=== PATIENT | female | born 1975 | race African-American/Black ===

== ENCOUNTER 2017-05-22 21:32 | Emergency (ER) | payer OTHER ==
[~2017-05-22] VITALS: Ht 165.1 cm; Wt 66.0 kg
[2017-05-22 21:40] VITALS: BP 121/72
== END 2017-05-23 01:30 | disposition left against medical advice (07) ==
LOC: ER 21:45
DX: R10.9 Unspecified abdominal pain (principal); Z53.21 Procedure and treatment not carried out due to patient leaving prior to being seen by health care provider

== ENCOUNTER 2019-03-16 17:52 | Emergency (ER) | payer OTHER ==
[~2019-03-16] VITALS: Ht 165.1 cm; Wt 78.0 kg
[2019-03-16 19:32] VITALS: BP 140/86
== END 2019-03-16 20:36 | disposition home or self-care (01) ==
LOC: ER 17:52
DX: T40.0X1A Poisoning by opium, accidental (unintentional), initial encounter (principal); F41.9 Anxiety disorder, unspecified; Z87.440 Personal history of urinary (tract) infections; Y92.89 Other specified places as the place of occurrence of the external cause
CPT/HCPCS: 99283; Z7610

== ENCOUNTER 2021-08-17 15:52 | Emergency (ER) | payer MEDICAID, OTHER ==
[~2021-08-17] VITALS: Ht 172.7 cm; Wt 63.0 kg
[2021-08-17] MEDS ORDERED: ACETAMINOPHEN 325MG TABLET PO ONE (18:30)
[2021-08-17 18:52] LABS: CLARITY URINE CLEAR (CLEAR); COLOR URINE DARK YELLOW (YELLOW); KETONES URINE NEGATIVE (NEGATIVE); LEUKOCYTE ESTERASE URINE 1+ (NEGATIVE); NITRITE URINE POSITIVE (NEGATIVE); OCCULT BLOOD URINE NEGATIVE (NEGATIVE); PH URINE 6.5 (4.5-8.0); PROTEIN URINE NEGATIVE (NEGATIVE); SPECIFIC GRAVITY URINE 1.008 (1.005-1.030)
[2021-08-17 19:07] LABS: *AMPHETAMINES SCREEN URINE NEGATIVE (NEGATIVE); *BARBITURATES SCREEN URINE NEGATIVE (NEGATIVE); *BENZODIAZEPINES SCREEN URINE PRESUMTIVE POSITIVE (NEGATIVE); *COCAINE SCREEN URINE NEGATIVE (NEGATIVE); CANNABINOID URINE SCREEN NEGATIVE (NEGATIVE); METHADONE URINE SCREEN NEGATIVE (NEGATIVE); OPIATES URINE SCREEN PRESUMTIVE POSITIVE (NEGATIVE); PHENCYCLIDINE URINE SCREEN NEGATIVE (NEGATIVE)
[2021-08-17] MEDS ORDERED: METOCLOPRAMIDE HCL 5MG TABLET PO ONE (19:15)
[2021-08-17 19:48] LABS: CHLORIDE 110 mEq/L (98-107)
[2021-08-17 19:52] LABS: BASOPHILS % 1.1 % (0.0-2.0); EOSINOPHILS % 3.5 % (0.0-5.0); HEMATOCRIT. 37.2 % (36.0-48.0); HEMOGLOBIN. 12.2 g/dL (12.0-16.0); LYMPHOCYTES % 49.1 % (20.0-50.0); MEAN CORPUSCULAR HEMOGLOBIN 25.2 pg (28.0-32.0); MEAN CORPUSCULAR VOLUME 77.1 fL (81.0-99.0); MEAN PLATELET VOLUME 8.8 fl (7.4-10.4); MONOCYTES % 3.4 % (2.0-8.0); NEUTROPHILS % 42.9 % (40.0-76.0); PLATELET 356 x1000/uL (130-400); RED BLOOD CELL COUNT 4.82 mill/uL (4.2-5.4); RED CELL DISTRIBUTION WIDTH 15.3 % (11.6-14.6)
[2021-08-17] MEDS ORDERED: ACET-2708 MT (20:15)
[2021-08-17] MEDS ORDERED: SULF1TAB48 MT (20:15)
[2021-08-17] MEDS ORDERED: METO5TAB86 MT (20:15)
[2021-08-17] MEDS ORDERED: SULFAMETHOXAZOLE/TRIMETHOPRIM 800/160MG TABLET PO NR (20:15)
[2021-08-17] MEDS ORDERED: METOCLOPRAMIDE HCL 5MG TABLET PO NR (20:30)
[2021-08-17 20:34] LABS: HCG SCREEN NEGATIVE
[2021-08-17 20:57] VITALS: BP 146/81
== END 2021-08-17 20:59 | disposition home or self-care (01) ==
LOC: ER 15:52
DX: G44.209 Tension-type headache, unspecified, not intractable (principal); I10 Essential (primary) hypertension; F41.9 Anxiety disorder, unspecified; Z87.440 Personal history of urinary (tract) infections; F17.290 Nicotine dependence, other tobacco product, uncomplicated; Z79.899 Other long term (current) drug therapy
CPT/HCPCS: 36415; 71045; 73630; 80053; 80305; 81003; 84703; 85025; 99285; 99406; J8597

== ENCOUNTER 2021-08-23 17:25 | Emergency (ER) | payer MEDICAID ==
[~2021-08-23] VITALS: Ht 160 cm; Wt 83.9 kg
[~2021-08-23 17:25] MED LIST: ACET-2708 MT; METO5TAB86 MT; SULF1TAB48 MT
[2021-08-23] MEDS ORDERED: ACETAMINOPHEN 325MG TABLET PO ONE (19:00)
[2021-08-23] MEDS ORDERED: KETOROLAC 60MG/2ML VIAL IM ONE (19:00)
[2021-08-23 19:07] VITALS: BP 120/84
== END 2021-08-23 19:17 | disposition home or self-care (01) ==
LOC: ER 17:25
DX: I10 Essential (primary) hypertension (principal)
CPT/HCPCS: 96372; 99283; J1885